=== PATIENT | male | born 1995 | race Caucasian/White ===

== ENCOUNTER 2017-02-14 12:15 | Emergency (ER) | payer OTHER ==
[~2017-02-14] VITALS: Ht 175.3 cm; Wt 75.0 kg
[~2017-02-14 12:15] MED LIST: OLAN5 PO; TRAZ50TA78 PO
[2017-02-14 12:21] VITALS: BP 128/67; PULSE 75; RESP 14; TEMP 98.9; O2SAT 97
--- NOTE | 2017-02-14 12:43 | PD ---
HPI Chief Complaint: Medical Clearance Time Seen by Provider: 12:38 Travel History International Travel<30 days: No Contact w/Intl Traveler<30days: No Traveled to known affect area: No History of Present Illness HPI 22-year-old male presents to the emergency Department under ex parte court order that was done by his mother for psychiatric evaluation. According to the court order, the patient's mother states that he is having delusions and is schizophrenic. She states that he has a thyroid disorder that he refuses to be seen for. She states that he quit taking his medications. The patient denies these accusations. He states he does not have delusions. 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 The patient states that he did quit taking his psychiatric medications because he did not like the way been made her feel. The patient denies having any chronic medical problems or taking any prescribed medications. He states that his mother lives with him and they do not always get along. He states that his father is in [facility]. The patient denies any alcohol, tobacco, drug use. He denies any medical complaints at this time. PFSH Past Surgical History Surgical History: No Previous Surgery Social History Alcohol Use: No Tobacco Use: No Substance Use: No Allergies-Medications (Allergen,Severity, Reaction): Coded Allergies: No Known Allergies (Unverified , 02/14/17) Reported Meds & Prescriptions Reported Meds & Active Scripts Active Review of Systems Except as stated in HPI: all other systems reviewed are Neg Physical Exam Narrative GENERAL: Well-nourished, well-developed male patient, ambulatory. Afebrile. Patient is alert and oriented to person, place, time. SKIN: Focused skin assessment warm/dry. HEAD: Normocephalic. Atraumatic. EYES: No scleral icterus. No injection or drainage. NECK: Supple, trachea midline. No JVD or lymphadenopathy. CARDIOVASCULAR: Regular rate and rhythm without murmurs, gallops, or rubs. RESPIRATORY: Breath sounds equal bilaterally. No accessory muscle use. Lungs sounds are clear to auscultation. GASTROINTESTINAL: Abdomen soft, non-tender, nondistended. MUSCULOSKELETAL: No cyanosis, or edema. PSYCHIATRIC: No delusional thought processes. No hallucinations. Data Data Last Documented VS Vital Signs Date Time Temp Pulse Resp B/P Pulse Ox O2 Delivery O2 Flow Rate FiO2 02/14/17 12:21 98.9 75 14 128/67 97 Orders Complete Blood Count With Diff (02/14/17 12:38) Comprehensive Metabolic Panel (02/14/17 12:38) Thyroid Stimulating Hormone (02/14/17 12:38) Psych Screen (02/14/17 12:38) Drug Screen, Random Urine (02/14/17 12:38) Alcohol (Ethanol) (02/14/17 12:38) Labs Laboratory Tests Test 02/14/17 12:50 White Blood Count 8.6 TH/MM3 Red Blood Count 5.00 MIL/MM3 Hemoglobin 14.6 GM/DL Hematocrit 42.2 % Mean Corpuscular Volume 84.4 FL Mean Corpuscular Hemoglobin 29.3 PG Mean Corpuscular Hemoglobin 34.7 % Concent Red Cell Distribution Width 13.1 % Platelet Count 241 TH/MM3 Mean Platelet Volume 8.5 FL Neutrophils (%) (Auto) 61.6 % Lymphocytes (%) (Auto) 28.3 % Monocytes (%) (Auto) 6.4 % Eosinophils (%) (Auto) 3.0 % Basophils (%) (Auto) 0.7 % Neutrophils # (Auto) 5.3 TH/MM3 Lymphocytes # (Auto) 2.4 TH/MM3 Monocytes # (Auto) 0.6 TH/MM3 Eosinophils # (Auto) 0.3 TH/MM3 Basophils # (Auto) 0.1 TH/MM3 CBC Comment DIFF FINAL Differential Comment Sodium Level 145 MEQ/L Potassium Level 3.6 MEQ/L Chloride Level 110 MEQ/L Carbon Dioxide Level 27.4 MEQ/L Anion Gap 8 MEQ/L Blood Urea Nitrogen 10 MG/DL Creatinine 0.89 MG/DL Estimat Glomerular Filtration 108 ML/MIN Rate Random Glucose 96 MG/DL Calcium Level 8.9 MG/DL Total Bilirubin 0.3 MG/DL Aspartate Amino Transf 18 U/L (AST/SGOT) Alanine Aminotransferase 22 U/L (ALT/SGPT) Alkaline Phosphatase 47 U/L Total Protein 6.8 GM/DL Albumin 4.0 GM/DL Thyroid Stimulating Hormone 0.479 uIU/ML 3rd Gen Ethyl Alcohol Level LESS THAN 3 MG/DL MDM Medical Decision Making Medical Screen Exam Complete: Yes Emergency Medical Condition: Yes Medical Record Reviewed: Yes Differential Diagnosis Depression versus anxiety versus bipolar disorder versus schizophrenia versus psychosis Narrative Course 22-year-old male presents to the emergency department asked partaker ordered and by his mother for psychiatric evaluation. 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 He had a normal TSH and no intervention was needed at that time. The patient denies having a medical complaints this time. CBC, CMP, alcohol level, urine drug screen, TSH are ordered and pending. CBC is unremarkable. CMP shows no acute abnormality. TSH is 0.479. Alcohol level is less than 3. UDS is pending. Patient is medically cleared for psychiatric screening and disposition. Mental health screening discussed with the patient. Psychiatric screen ordered. Diagnosis Primary Impression: Medical clearance for psychiatric admission Additional Instructions: Patient is medically cleared for psychiatric screening and disposition. Condition: Stable Sherrie Og Feb 14, 2017 12:43
[2017-02-14 13:09] LABS: AUTOMATED NEUTROPHIL # 5.3 TH/MM3 (1.8-7.7); BASOPHIL # 0.1 TH/MM3 (0-0.2); BASOPHIL % 0.7 % (0.0-2.0); EOSINOPHIL # 0.3 TH/MM3 (0-0.4); HEMATOCRIT 42.2 % (39.0-51.0); HEMO FLAGS DIFF FINAL; LYMPH % 28.3 % (9.0-44.0); LYMPHOCYTE # 2.4 TH/MM3 (1.0-4.8); MEAN CELL VOLUME 84.4 FL (80.0-100.0); MEAN CORPUSCULAR HEMOGLOBIN 29.3 PG (27.0-34.0); MEAN CORPUSCULAR HGB CONC 34.7 % (32.0-36.0); MONO % 6.4 % (0.0-8.0); NEUT % 61.6 % (16.0-70.0); PLATELET COUNT 241 TH/MM3 (150-450); RED CELL DISTRIBUTION WIDTH 13.1 % (11.6-17.2); WHITE BLOOD COUNT 8.6 TH/MM3 (4.0-11.0)
[2017-02-14 13:34] LABS: ALT (GPT) 22 U/L (12-78); ANION GAP 8 MEQ/L (5-15); BICARBONATE 27.4 MEQ/L (21.0-32.0); BLOOD UREA NITROGEN 10 MG/DL (7-18); CHLORIDE 110 MEQ/L (98-107); GLOMERULAR FILTRATION RATE 108 ML/MIN (>89); SODIUM (NA) 145 MEQ/L (136-145)
[2017-02-14 13:36] LABS: POTASSIUM 3.6 MEQ/L (3.5-5.1)
[2017-02-14 13:48] LABS: ALKALINE PHOSPHATASE 47 U/L (45-117); AST (GOT) 18 U/L (15-37); TOTAL BILIRUBIN ADULT 0.3 MG/DL (0.2-1.0)
--- NOTE | 2017-02-14 17:13 | PD ---
History of Present Illness Chief Complaint: Medical Clearance Time Seen by Provider: 14:30 Travel History International Travel<30 Days: No Contact w/Intl Traveler<30days: No Known affected area: No Legal Status Legal Status: Ex Parte History of Present Illness: 22-year-old male with reported history of schizophrenia, placed under X partake order by his mother after he did not go home last night. Patient states he spent the night at a friend's house and that he was planning to return to his mother this morning when he was brought here by police. Patient is denying any suicidal or homicidal ideation, plan or intent at this time. He is denying any delusions or hallucinations. He does admit to being previously diagnosed with schizophrenia and he admits to not taking medications for this diagnosis. He states he did not like the side effects to the medicines. Patient also admits to having a small thyroid mass. He is reportedly not ignoring this and is willing to accept treatment for it. This physician understands the patient does indeed have schizophrenia and may or may not be experiencing psychotic symptoms. However, at this time the patient appears to be cognitively intact and competent to make decisions for himself. As he has a plan to return home with his mother, this physician does not feel he meets criteria for inpatient psychiatric hospitalization or civil commitment. PFSH Past Medical History Narrative Medical Some type of small thyroid mass. History of diagnosis of schizophrenia. Past Surgical History Surgical History: No Previous Surgery Psychiatric History Psychiatric History Hx Psychiatric Treatment: The patient stated that he was admitted to a hospital in [place] for anxiety, however, his mother reports this is his first hospitalization. Patient reportedly has schizophrenia. History of Inpatient Treatment: No Social History Hx Alcohol Use: No Hx Tobacco Use: No Hx Substance Use: No Substance Use Type: Marijuana Hx of Substance Use Treatment: No Allergies-Medications (Allergen,Severity, Reaction): Coded Allergies: No Known Allergies (Unverified , 02/14/17) Reported Meds & Prescriptions Reported Meds & Active Scripts Active Review of Systems Except as stated in HPI: all other systems reviewed are Neg Exam Alert: Yes [place]: Person, Place, Date, Situation Mood: Calm Affect: Appropriate Speech: Clear, Logical Eye Contact: Normal Memory Intact: Immediate, Recent, Remote Insight/Judgement Adequate MDM Medical Decision Making Medical Record Reviewed: Yes Assessment/Plan Patient has been seen in ex parte order is no longer warranted. Even though the patient may have schizophrenia, at this point he is denying any hallucinations, delusions, suicidal ideation, homicidal ideation, etc. As he is competent to make these decisions, despite the inherent risk of a mental illness exacerbation, this physician does not feel he qualifies for civil commitment. He declines to be psychiatrically hospitalized and least restrictive alternative certainly applies. Patient states he is willing to receive outpatient follow up but at this point he does not want to take psychotropic medicines. Therefore, despite the risks involved, the patient is being discharged. His request. Orders Complete Blood Count With Diff (02/14/17 12:38) Comprehensive Metabolic Panel (02/14/17 12:38) Thyroid Stimulating Hormone (02/14/17 12:38) Psych Screen (02/14/17 12:38) Drug Screen, Random Urine (02/14/17 12:38) Alcohol (Ethanol) (02/14/17 12:38) Results Vital Signs Date Time Temp Pulse Resp B/P Pulse Ox O2 Delivery O2 Flow Rate FiO2 02/14/17 12:21 98.9 75 14 128/67 97 Laboratory Tests Test 02/14/17 12:50 White Blood Count 8.6 Red Blood Count 5.00 Hemoglobin 14.6 Hematocrit 42.2 Mean Corpuscular Volume 84.4 Mean Corpuscular Hemoglobin 29.3 Mean Corpuscular Hemoglobin 34.7 Concent Red Cell Distribution Width 13.1 Platelet Count 241 Mean Platelet Volume 8.5 Neutrophils (%) (Auto) 61.6 Lymphocytes (%) (Auto) 28.3 Monocytes (%) (Auto) 6.4 Eosinophils (%) (Auto) 3.0 Basophils (%) (Auto) 0.7 Neutrophils # (Auto) 5.3 Lymphocytes # (Auto) 2.4 Monocytes # (Auto) 0.6 Eosinophils # (Auto) 0.3 Basophils # (Auto) 0.1 CBC Comment DIFF FINAL Differential Comment Sodium Level 145 Potassium Level 3.6 Chloride Level 110 Carbon Dioxide Level 27.4 Anion Gap 8 Blood Urea Nitrogen 10 Creatinine 0.89 Estimat Glomerular Filtration 108 Rate Random Glucose 96 Calcium Level 8.9 Total Bilirubin 0.3 Aspartate Amino Transf 18 (AST/SGOT) Alanine Aminotransferase 22 (ALT/SGPT) Alkaline Phosphatase 47 Total Protein 6.8 Albumin 4.0 Thyroid Stimulating Hormone 0.479 3rd Gen Ethyl Alcohol Level LESS THAN 3 Diagnosis Primary Impression: Schizophrenia Referrals: Family Practice Physician call for appointment Departure Forms: Tests/Procedures Patient Instructions: General Instructions, Medical Clearance for Psychiatric Care (ED) Additional Instructions: Patient is medically cleared for psychiatric screening and disposition. Disposition: 01 DISCHARGE HOME Condition: Stable Dmitri Jaquez MD Feb 14, 2017 17:12
== END 2017-02-14 16:45 | disposition home or self-care (01) ==
LOC: NEPD 12:15
DX: F20.9 Schizophrenia, unspecified (principal)
CPT/HCPCS: 80053; 80307; 84443; 85025; 99284